=== PATIENT | female | born 1970 | race Caucasian/White ===

== ENCOUNTER 2018-12-10 17:24 | Inpatient (IN) | payer BC ==
[~2018-12-10] VITALS: Ht 167.6 cm; Wt 132.2 kg
[~2018-12-10 17:24] MED LIST: CEFUROXIME500 MG PO; DITROPAN XL5 MG PO; LISINOPRIL-HCT1 EACH PO; TYLENOL WITH C1 EACH PO
[2018-12-10 17:59] LABS: BILIRUBIN,URINE NEGATIVE (NEGATIVE); CLARITY,URINE CLOUDY (CLEAR); COLOR,URINE YELLOW (YELLOW); KETONES,URINE NEGATIVE (NEGATIVE); LEUKOCYTE ESTERASE ,URINE LARGE (NEGATIVE); NITRITE,URINE POSITIVE (NEGATIVE); PROTEIN,URINE DIPSTICK 2+ (NEGATIVE); URINE UROBILINOGEN 0.2 mg/dL (0.2 - 1)
[2018-12-10] MEDS ORDERED: SODIUM CHLORIDE 0.9% 1000ML 1,000 ML IV ONE (18:00)
[2018-12-10] MEDS ORDERED: ONDANSETRON HCL INJ 2MG/ML 2ML 2 MG/ML VIAL IV NR (18:00)
[2018-12-10 18:14] LABS: BACTERIA,URINE MANY /HPF; EPITHELIAL CELLS,URINE FEW /LPF; WBC,URINE (MAN) >50 /HPF (0-5)
[2018-12-10 18:32] LABS: BASOPHILS # (AUTO) 0.1 (0.0-0.1); BASOPHILS % 0.6 % (0.0-1.0); EOSINOPHILS % 0.1 % (0.0-6.0); HEMATOCRIT 48.8 % (34.2-44.1); HEMOGLOBIN 16.3 g/dL (12.0-16.0); LYMPHOCYTES # (AUTO) 1.4 (1.0-3.2); LYMPHOCYTES % 9.8 % (18.0-39.1); MEAN CORPUSCULAR HEMOGLOBIN 27.6 pg (28-32); MEAN CORPUSCULAR HGB CONC 33.4 g/dL (31-35); MEAN CORPUSCULAR VOLUME 82.6 fL (81-99); MONOCYTES # (AUTO) 0.7 (0.2-0.8); MONOCYTES % 5.2 % (4.4-11.3); PLATELET COUNT 325 x10e3/uL (140-360); RED BLOOD COUNT 5.91 x10e6/uL (3.6-5.1); RED CELL DISTRIBUTION WIDTH 13.6 % (11.7-14.4)
[2018-12-10 18:57] LABS: ALBUMIN 3.9 g/dL (3.5-5.0); ANION GAP 14.5 mmol/L (8-16); CREATININE, SERUM 1.19 mg/dL (0.57-1.11); POTASSIUM 3.5 mmol/L (3.5-5.1)
[2018-12-10] MEDS ORDERED: MEROPENEM 1GM 100 ML IV SCH (19:00)
[2018-12-10] MEDS ORDERED: KETOROLAC TROMETHAMINE 30 MG/ML VIAL IV NR (19:00)
[2018-12-10] MEDS: SODIUM CHLORIDE 0.9% 1000ML 1,000 ML IV SCH ×3 (19:15→23:53)
[2018-12-10] MEDS: MEROPENEM 1GM 100 ML IV SCH (19:49)
[2018-12-10] MEDS ORDERED: ACETAMINOPHEN 1000 MG/100 ML IV NR (20:00)
[2018-12-10] MEDS ORDERED: MORPHINE SULFATE INJ 4 MG/ML INJ 1ML IV PRN (20:00)
--- NOTE | 2018-12-10 20:04 | Diagnostic Imaging Report ---
Exam: Abdominal film Clinical History: Right renal stent placement and a single, fever since yesterday Comparison: KUB 12/01/2018 DISCUSSION: Frontal view of the abdomen shows a nonobstructive bowel gas pattern with single mildly dilated loop of small bowel in the left lower quadrant, with maximal measurement of 3.8 cm. . Previously visualized 5 mm radiopaque density projecting over the left renal shadow is not clearly seen in the current exam. Right double-J internal ureteral stent in place. No acute bony abnormalities. IMPRESSION: 1. Single mildly dilated loop of small bowel in the left lower quadrant, which may reflect focal ileus. Rest of the bowel shows no air-filled, dilated loops. 2. Previously visualized 5 mm radiopaque density over the left renal shadow, consistent with nonobstructing calculus is not clearly seen on the current exam. No other abnormal calcifications. 3. Right double-J internal ureteral stent in place. The staff physician below has personally reviewed this exam on the date of dictation. Signed by: Dr. River Bee M.D. on 12/10/2018 8:01 PM
[2018-12-10] MEDS ORDERED: KETOROLAC TROMETHAMINE 30 MG/ML VIAL IV STA (20:37)
[2018-12-10 21:00] VITALS: BP 110/78
--- NOTE | 2018-12-10 21:09 | NUR ---
patient brought in the [facility]. Patient offered, safety and fall precautions maintained
[2018-12-10] MEDS ORDERED: SODIUM CHLORIDE 0.9% 1000ML 1,000 ML ONE (21:31)
[2018-12-10] MEDS ORDERED: SODIUM CHLORIDE 0.9% IV ONE (22:15)
--- NOTE | 2018-12-10 22:32 | Diagnostic Imaging Report ---
EXAMINATION: CT of the abdomen and pelvis without contrast. TECHNIQUE: Spiral CT images of the abdomen and pelvis were performed from the lung bases to the lesser trochanters. No intravenous contrast was given per renal stone protocol. Coronal and sagittal reformatted images were obtained. COMPARISON: CT abdomen and pelvis without contrast 12/01/2018 CLINICAL HISTORY:Fever, evaluate for ureteral obstruction DISCUSSION: ABSENCE OF INTRAVENOUS CONTRAST DECREASES SENSITIVITY FOR DETECTION OF FOCAL LESIONS AND VASCULAR PATHOLOGY. ABDOMEN/PELVIS: LOWER THORAX: Stable 5 mm pulmonary nodule in the lateral right lower lobe (series 3, image 6). Stable 2 mm pulmonary nodule in the lateral left lower lobe (series 3, image 13) Stable subpleural linear density in the lateral right lower lobe consistent with focal atelectasis or scarring (series 3, image 8). HEPATOBILIARY: Diffuse hepatic steatosis. No focal lesions. No intra or extrahepatic biliary ductal dilation. GALLBLADDER: No radio-opaque stones or sludge. No wall thickening. SPLEEN: No splenomegaly. PANCREAS: No focal masses or ductal dilatation. ADRENALS: No adrenal nodules. KIDNEYS/URETERS: Stable 3 mm nonobstructing calculus in the left inferior pole (series 3, image 89). No other renal or ureteral calculi, hydronephrosis or obstruction. Right double-J internal ureteral stent in place, with pigtail in the right superior calyx and lower pigtail in the bladder. No significant encrustation. Mild right perinephric and periureteral stranding. No contour abnormalities. PELVIC ORGANS/BLADDER: Bladder is unremarkable. No calculi. Uterus is absent. No adnexal masses. PERITONEUM/RETROPERITONEUM: No free air or fluid. LYMPH NODES: No intra-abdominal,retroperitoneal, pelvic or inguinal lymphadenopathy. VESSELS: Unremarkable for noncontrast exam. GI TRACT: No bowel dilation or evidence of obstruction. No pericolonic inflammatory changes. Appendix is well identified and normal in caliber. BONES AND SOFT TISSUES: No aggressive lytic lesions. Marked degenerative disc changes at L5-S1 with marked intervertebral disc space narrowing and grade 1 anterolisthesis of L5 on S1. Soft tissues are grossly unremarkable. IMPRESSION: 1. No ureteral calculi, hydronephrosis or evidence of obstruction. 2. Stable 3 mm nonobstructing calculus in the left inferior pole. No other renal calculi. 3. Mild right perinephric and periureteral stranding. Although ascending infection is a consideration, unable to assess for pyelonephritis given the lack of intravenous contrast. Alternatively this may be secondary to recently placed double-J internal ureteral stent. 4. Diffuse hepatic stenosis. 5. Stable bilateral lower lobe nonspecific pulmonary nodules. If patient is low risk, no further follow-up is indicated per Fleischner Society 2017 guidelines. Signed by: Dr. River Bee M.D. on 12/10/2018 10:29 PM
[2018-12-10 23:35] VITALS: BP 108/79
[2018-12-11] VITALS (8 sets, daily range): BP systolic 100–103; BP diastolic 59–71
[2018-12-11] MEDS: ONDANSETRON HCL INJ 2MG/ML 2ML 2 MG/ML VIAL IV PRN ×2 (03:00→20:45)
--- NOTE | 2018-12-11 05:31 | NUR ---
0445: patient complained of stomach up set, zofran and tylenol for temp. Dr. Person aware
[2018-12-11] MEDS ORDERED: ACETAMINOPHEN 325 MG TAB PO PRN (06:15)
[2018-12-11] MEDS ORDERED: ACETAMINOPHEN/CODEINE 300MG - 30MG TAB PO PRN (06:15)
[2018-12-11] MEDS ORDERED: HYDRALAZINE HCL 20 MG/ML VIAL IV PRN (06:15)
[2018-12-11] MEDS: SODIUM CHLORIDE 0.9% 1000ML 1,000 ML IV SCH ×3 (06:31→20:08)
[2018-12-11 06:32] LABS: BASOPHILS # (AUTO) 0.1 (0.0-0.1); BASOPHILS % 0.4 % (0.0-1.0); EOSINOPHILS # (AUTO) 0.1 (0.0-0.4); EOSINOPHILS % 0.3 % (0.0-6.0); HEMATOCRIT 41.4 % (34.2-44.1); HEMOGLOBIN 13.6 g/dL (12.0-16.0); LYMPHOCYTES # (AUTO) 0.9 (1.0-3.2); LYMPHOCYTES % 5.7 % (18.0-39.1); MEAN CORPUSCULAR HEMOGLOBIN 27.3 pg (28-32); MEAN CORPUSCULAR HGB CONC 32.9 g/dL (31-35); MEAN CORPUSCULAR VOLUME 83.1 fL (81-99); MONOCYTES % 6.4 % (4.4-11.3); NEUTROPHILS # (AUTO) 14.1 (2.1-6.9); NEUTROPHILS % 86.8 % (38.7-80.0); PLATELET COUNT 234 x10e3/uL (140-360); RED BLOOD COUNT 4.98 x10e6/uL (3.6-5.1); RED CELL DISTRIBUTION WIDTH 13.8 % (11.7-14.4)
[2018-12-11] MEDS ORDERED: CHOLESTYRAMINE 4 GM PACKET PO PRN (06:45)
[2018-12-11] MEDS: FAMOTIDINE 20 MG TAB PO SCH ×3 (06:45→16:58)
[2018-12-11 06:50] LABS: ANION GAP 11.1 mmol/L (8-16); BLOOD UREA NITROGEN 12 mg/dL (7-26); BUN/CREATININE RATIO 14 (6-25); CARBON DIOXIDE 20 mmol/L (22-29); CHLORIDE 106 mmol/L (98-107); CREATININE, SERUM 0.84 mg/dL (0.57-1.11); EST GLOMERULAR FILTRATION RATE > 60 ML/MIN (60-); GLUCOSE 129 mg/dL (74-118); POTASSIUM 3.1 mmol/L (3.5-5.1); SODIUM 134 mmol/L (136-145)
[2018-12-11] MEDS ORDERED: MEROPENEM 1GM 100 ML IV SCH (07:00)
--- NOTE | 2018-12-11 07:30 | NUR ---
report taken from Sarah Ma RN, patient is complaing of temp and nausea/vomiting and abdominal pain
[2018-12-11] MEDS: MEROPENEM 1GM 100 ML IV SCH ×2 (07:57→20:15)
--- NOTE | 2018-12-11 09:30 | NUR ---
Spoke with Summer Benjamin NP and gave her the vital signs and the symptoms of sepsis, Gram neg rods in blood culture. Ordered iv potassium, abdominal US, and she will see her later today.
[2018-12-11] MEDS ORDERED: POTASSIUM CHLORIDE 20MEQ/100ML 200 ML IV ONE (09:45)
[2018-12-11] MEDS: ACETAMINOPHEN 325 MG TAB PO PRN ×2 (09:56→17:11)
[2018-12-11] MEDS: PROMETHAZINE 12.5MG/ NACL 0.9% 12.5 MG/50 ML BAG IV PRN (10:34)
--- NOTE | 2018-12-11 11:46 | NUR ---
Patient is sleeping after phenergan ordered by Summer Benjamin NP
[2018-12-11 12:03] LABS: BAND NEUTROPHILS % (MANUAL) 3 %; LYMPHOCYTES % (MANUAL) 6 % (19-48); MONOCYTES % (MANUAL) 6 % (3.4-9.0); NEUTROPHILS % (MANUAL) 85 % (40-74)
[2018-12-11 12:04] LABS: PLATELET ESTIMATE ADEQUATE; PLATELET MORPHOLOGY COMMENT NORMAL; RBC MORPHOLOGY COMMENT NORMAL
--- NOTE | 2018-12-11 17:35 | NUR ---
Patient had a temp of 100.4 which she rec'd PO Tylenol for at 1700. She has been awaiting Dr. Jorgensen today but Dr. Kuo has seen patient today. Patient is appropriate and asking the right questions. is at her bedside.
--- NOTE | 2018-12-11 21:58 | Diagnostic Imaging Report ---
EXAM: Complete Abdominal Ultrasound INDICATION: ^vomiting ^[id number] ^[id number] COMPARISON: CT abdomen and pelvis 12/10/2018 , gallbladder ultrasound 12/01/2018 TECHNIQUE: Transverse and longitudinal images of the upper abdomen were obtained. FINDINGS: Liver: Size: 19.2 cm in the right midclavicular line, enlarged Appearance: Increased echogenicity, smooth contour Mass: 1.1 cm anechoic lesion in the left hepatic lobe, which has no corresponding abnormality on recent CT Spleen: Size: 12.9 cm in length, borderline enlarged Echogenicity: Normal Mass: No focal masses Gallbladder: Stones/Sludge: None. Previously visualized echogenic focus in the gallbladder noted on ultrasound 12/01/2018 is not seen in the current exam. Wall: 0.2 cm Appearance: No wall thickening, pericholecystic fluid or hydrops. Sonographic Espinosa's Sign: Negative Bile Ducts: Intrahepatic Ducts: No dilatation Extrahepatic Ducts: Common bile duct measures 0.1 cm, no dilatation Pancreas: Visualized portions of the neck and proximal body are unremarkable. Kidneys: Length: Right 13.0 cm upper limit of normal. Left 13.3 cm upper limit of normal. Echogenicity: Normal Collecting System: No hydronephrosis Stone: None Cyst/Mass: 1.9 x 1.6 cm anechoic lesion in the left inferior pole Vessels: Aorta: Visualized portions are normal Inferior Vena Cava: Visualized portions are normal Main Portal Vein: 1.0 cm, normal size with hepatopetal flow. Free Fluid: No ascites or pleural effusion IMPRESSION: 1. Hepatomegaly with diffuse fatty infiltration. 2. 1.9 cm simple cyst in the left inferior pole. 3. A previously visualized echogenic focus in the gallbladder on ultrasound 12/01/2018 is not seen in the current exam. Signed by: Dr. River Bee M.D. on 12/11/2018 9:55 PM
[2018-12-12] VITALS (8 sets, daily range): BP systolic 103–131; BP diastolic 56–78
[2018-12-12] MEDS: ACETAMINOPHEN 325 MG TAB PO PRN ×3 (00:17→09:44)
[2018-12-12] MEDS: SODIUM CHLORIDE 0.9% 1000ML 1,000 ML IV SCH ×4 (02:25→23:18)
[2018-12-12 03:54] LABS: BASOPHILS # (AUTO) 0.1 (0.0-0.1); BASOPHILS % 0.4 % (0.0-1.0); EOSINOPHILS # (AUTO) 0.1 (0.0-0.4); EOSINOPHILS % 0.4 % (0.0-6.0); HEMATOCRIT 37.2 % (34.2-44.1); HEMOGLOBIN 11.9 g/dL (12.0-16.0); LYMPHOCYTES # (AUTO) 2.1 (1.0-3.2); LYMPHOCYTES % 15.2 % (18.0-39.1); MEAN CORPUSCULAR HEMOGLOBIN 27.4 pg (28-32); MEAN CORPUSCULAR VOLUME 85.5 fL (81-99); MONOCYTES # (AUTO) 1.2 (0.2-0.8); MONOCYTES % 8.8 % (4.4-11.3); NEUTROPHILS # (AUTO) 10.4 (2.1-6.9); NEUTROPHILS % 74.8 % (38.7-80.0); PLATELET COUNT 191 x10e3/uL (140-360); RED BLOOD COUNT 4.35 x10e6/uL (3.6-5.1); RED CELL DISTRIBUTION WIDTH 13.9 % (11.7-14.4)
[2018-12-12 04:16] LABS: ANION GAP 10.6 mmol/L (8-16); BLOOD UREA NITROGEN 7 mg/dL (7-26); BUN/CREATININE RATIO 9 (6-25); CALCIUM 8.1 mg/dL (8.4-10.2); CARBON DIOXIDE 23 mmol/L (22-29); CHLORIDE 106 mmol/L (98-107); CREATININE, SERUM 0.74 mg/dL (0.57-1.11); EST GLOMERULAR FILTRATION RATE > 60 ML/MIN (60-); GLUCOSE 107 mg/dL (74-118); POTASSIUM 3.6 mmol/L (3.5-5.1); SODIUM 136 mmol/L (136-145)
--- NOTE | 2018-12-12 07:15 | NUR ---
Patient endorsed to next shift for continuity of care.
[2018-12-12] MEDS: OYST-CAL-D 500MG TABLET PO SCH (09:43)
[2018-12-12] MEDS: FAMOTIDINE 20 MG TAB PO SCH (09:43)
[2018-12-12] MEDS: MEROPENEM 1GM 100 ML IV SCH ×2 (09:43→20:24)
[2018-12-12] MEDS: ONDANSETRON HCL INJ 2MG/ML 2ML 2 MG/ML VIAL IV PRN ×4 (09:43→21:52)
[2018-12-12] MEDS: TRAMADOL HCL 50 MG TAB PO PRN ×2 (09:44→16:50)
[2018-12-12] MEDS: FAMOTIDINE 20 MG/2 ML VIAL IV SCH (16:50)
[2018-12-12] MEDS: PROMETHAZINE 12.5MG/ NACL 0.9% 12.5 MG/50 ML BAG IV PRN (16:50)
[2018-12-12] MEDS: MELATONIN 5 MG TABLET PO PRN (20:34)
[2018-12-13] VITALS (7 sets, daily range): BP systolic 121–150; BP diastolic 65–89
[2018-12-13] MEDS: ONDANSETRON HCL INJ 2MG/ML 2ML 2 MG/ML VIAL IV PRN ×3 (03:07→17:32)
[2018-12-13 05:25] LABS: BASOPHILS % 0.4 % (0.0-1.0); EOSINOPHILS # (AUTO) 0.1 (0.0-0.4); EOSINOPHILS % 1.1 % (0.0-6.0); HEMATOCRIT 33.8 % (34.2-44.1); HEMOGLOBIN 11.2 g/dL (12.0-16.0); LYMPHOCYTES # (AUTO) 1.4 (1.0-3.2); LYMPHOCYTES % 15.6 % (18.0-39.1); MEAN CORPUSCULAR HEMOGLOBIN 27.7 pg (28-32); MEAN CORPUSCULAR HGB CONC 33.1 g/dL (31-35); MEAN CORPUSCULAR VOLUME 83.7 fL (81-99); MONOCYTES # (AUTO) 0.7 (0.2-0.8); MONOCYTES % 7.2 % (4.4-11.3); NEUTROPHILS # (AUTO) 6.8 (2.1-6.9); NEUTROPHILS % 75.3 % (38.7-80.0); PLATELET COUNT 190 x10e3/uL (140-360); RED BLOOD COUNT 4.04 x10e6/uL (3.6-5.1); RED CELL DISTRIBUTION WIDTH 13.7 % (11.7-14.4)
[2018-12-13 05:45] LABS: ANION GAP 11.5 mmol/L (8-16); BLOOD UREA NITROGEN 10 mg/dL (7-26); BUN/CREATININE RATIO 15 (6-25); CALCIUM 8.3 mg/dL (8.4-10.2); CARBON DIOXIDE 23 mmol/L (22-29); CHLORIDE 106 mmol/L (98-107); CREATININE, SERUM 0.65 mg/dL (0.57-1.11); EST GLOMERULAR FILTRATION RATE > 60 ML/MIN (60-); GLUCOSE 110 mg/dL (74-118); POTASSIUM 3.5 mmol/L (3.5-5.1); SODIUM 137 mmol/L (136-145)
[2018-12-13] MEDS: SODIUM CHLORIDE 0.9% 1000ML 1,000 ML IV SCH ×3 (06:29→18:25)
[2018-12-13] MEDS: MEROPENEM 1GM 100 ML IV SCH (07:36)
[2018-12-13] MEDS: OYST-CAL-D 500MG TABLET PO SCH (08:32)
[2018-12-13] MEDS: FAMOTIDINE 20 MG/2 ML VIAL IV SCH ×2 (08:32→17:32)
--- NOTE | 2018-12-13 15:39 | NUR ---
Spoke with Dr. Segura regarding outpatient IV abx. States he will see pt and try to set up thru his office. He stated pt would probably be able to discharge tomorrow afternoon.
[2018-12-13] MEDS ORDERED: MEROPENEM 1GM 100 ML IV SCH (16:00)
[2018-12-13] MEDS ORDERED: DIPHENOXYLATE/ATROPINE TAB PO PRN (18:00)
--- NOTE | 2018-12-13 18:57 | Diagnostic Imaging Report ---
Hepatobiliary Scan with Gallbladder Ejection Fraction Clinical information: Severe nausea and vomiting x 2 days Report: Following intravenous administration of 6.5 millicuries of Tc-99m mebrofenin, dynamic images of the abdomen in the anterior projection were obtained through 60 minutes. Sincalide (CCK analog) 2.65 micrograms was administered intravenously over 30 minutes with additional imaging for determination of gallbladder ejection fraction. Perfusion to the liver is normal. Extraction of tracer from the blood pool by the liver parenchyma is normal. Tracer is seen promptly within the biliary tract. The gallbladder begins to fill by 16 minutes post-injection of tracer and fills adequately. Tracer is seen in the small bowel during the sincalide infusion. The gallbladder ejection fraction with administration of sincalide is 99% (normal greater than 40%). Impression: 1. Filling of the gallbladder excludes the diagnosis of acute cystic duct obstruction/acute cholecystitis. 2. Normal gallbladder ejection fraction of 99% does not support the clinical diagnosis of chronic cholecystitis/gallbladder dyskinesia. Signed by: Dr. Melani Álvarez M.D. on 12/13/2018 6:54 PM
[2018-12-13 19:15] LABS: ALBUMIN 2.5 g/dL (3.5-5.0); BILIRUBIN,DIRECT 0.2 mg/dL (0.0-0.5)
--- NOTE | 2018-12-13 22:17 | Consultation ---
DATE OF CONSULTATION: REASON FOR CONSULTATION: Sepsis, pyelonephritis with ESBL bacteremia. HISTORY OF PRESENT ILLNESS: This patient is a very pleasant 48-year-old white female. She was recently diagnosed with renal stone. The patient does have underlying history of morbid obesity. She came to the emergency room back on December 01 with right-sided flank pain. She was diagnosed with renal stone. The patient underwent stent placement. She was sent home with an oral antibiotic. She followed Dr. Travis Jorgensen as an outpatient. She was not feeling well. She was given more antibiotic, but then suddenly she felt really horrible with fever and chills and she had to tell her to come to the emergency room. In the emergency room, she came here, she was started on intravenous antibiotic. She grew Klebsiella pneumonia, which was multidrug resistant ESBL. Infectious Disease was asked to see the patient. The patient is currently having a HIDA scan. When I saw her and had an interview with her. The patient has a history of obesity, history of hypertension, history of psoriasis. PAST SURGICAL HISTORY: Hysterectomy, pregnancies, and stent placement on the left. ALLERGIES: PENICILLIN. SOCIAL HISTORY: There is no smoking, drug abuse, or alcohol abuse. FAMILY HISTORY: Hypertension and diabetes. PAST MEDICAL HISTORY: Hypertension. There is no diabetes, but there is obesity and psoriasis. REVIEW OF SYSTEMS: HEENT: There is no headache, visual changes, or hearing changes. GI: There is nausea, but no vomiting. Her pain is better. PSYCHIATRIC: She is a little bit anxious about her condition, in tears. LABORATORY DATA: Reviewed. Her urine cultures on December 10 showed ESBL Klebsiella pneumonia sensitive only to meropenem and amikacin, piperacillin/tazobactam, it was the same bacteria in the urine. The patient did have a CAT scan of abdomen and pelvis on December 10, which showed no ureteral calculi, hydronephrosis or evidence of obstruction. There is stable 3 mm nonobstructive calculi in the left inferior pole. Mild right perinephric stranding. Her laboratory data reviewed and as mentioned above. Her white count when she first came was 14.3, now is 9.04, her hemoglobin of 11, her sodium 137, potassium 3.5, creatinine 0.85. PHYSICAL EXAMINATION: GENERAL: She is currently alert, oriented, does not seem to be in acute distress. VITAL SIGNS: Stable, currently afebrile. HEENT: Normocephalic, not icteric. NECK: Supple. CHEST: Clear. HEART: S1 and S2. No murmur. ABDOMEN: Soft and obese. No tenderness. No hepatosplenomegaly. EXTREMITIES: No edema. SKIN: No rash. IMPRESSION: Sepsis with extended-spectrum beta-lactamase Klebsiella pneumonia. Source is pyelonephritis. We would recommend 14 days of meropenem. We will need a PICC line and then we will do meropenem 1 g IV piggyback q.8 hours, weekly CBC, weekly Chem panel. Recheck urine cultures 1 week after finishing the treatment. Discussed with the patient. Discussed with the medical team. We will arrange outpatient IV antibiotic, please contact at [phone]. I answered all the questions for the patient. MD ALE Barriga/KADIE /[id number]
[2018-12-14 00:44] VITALS: BP 127/68
--- NOTE | 2018-12-14 00:49 | Diagnostic Imaging Report ---
EXAMINATION: CHEST XRAY LINE PLACEMENT INDICATION: ^CHECK PICC PLACEMENT ^[id number] ^0025 COMPARISON: None FINDINGS: AP view TUBES and LINES: Right PICC in place with tip projecting over mid SVC. LUNGS: Lungs are well inflated. There is no evidence of pneumonia or pulmonary edema. Mild central vascular congestion. PLEURA: No pleural effusion or pneumothorax. HEART AND MEDIASTINUM: The cardiomediastinal silhouette is borderline enlarged on this AP view. BONES AND SOFT TISSUES: No acute osseous lesion. Soft tissues are unremarkable. UPPER ABDOMEN: No free air under the diaphragm. IMPRESSION: Right PICC in place with tip projecting over mid SVC. No visible pneumothorax. Signed by: Dr. Stephane Samuels MD on 12/14/2018 12:46 AM
[2018-12-14] MEDS: MEROPENEM 1GM 100 ML IV SCH ×3 (01:00→17:10)
[2018-12-14] MEDS: SODIUM CHLORIDE 0.9% 1000ML 1,000 ML IV SCH ×2 (01:05→09:50)
[2018-12-14] MEDS: ONDANSETRON HCL INJ 2MG/ML 2ML 2 MG/ML VIAL IV PRN (01:05)
[2018-12-14] MEDS: MELATONIN 5 MG TABLET PO PRN (01:05)
[2018-12-14 04:40] VITALS: BP 150/78
[2018-12-14 05:02] LABS: BASOPHILS % 0.7 % (0.0-1.0); EOSINOPHILS # (AUTO) 0.2 (0.0-0.4); EOSINOPHILS % 2.6 % (0.0-6.0); HEMATOCRIT 34.2 % (34.2-44.1); LYMPHOCYTES # (AUTO) 1.5 (1.0-3.2); LYMPHOCYTES % 24.7 % (18.0-39.1); MEAN CORPUSCULAR HEMOGLOBIN 26.9 pg (28-32); MEAN CORPUSCULAR HGB CONC 32.2 g/dL (31-35); MEAN CORPUSCULAR VOLUME 83.6 fL (81-99); MONOCYTES # (AUTO) 0.5 (0.2-0.8); MONOCYTES % 8.8 % (4.4-11.3); NEUTROPHILS # (AUTO) 3.9 (2.1-6.9); NEUTROPHILS % 62.9 % (38.7-80.0); PLATELET COUNT 191 x10e3/uL (140-360); RED BLOOD COUNT 4.09 x10e6/uL (3.6-5.1); RED CELL DISTRIBUTION WIDTH 13.5 % (11.7-14.4)
[2018-12-14 05:29] LABS: ANION GAP 12.5 mmol/L (8-16); BLOOD UREA NITROGEN 8 mg/dL (7-26); BUN/CREATININE RATIO 13 (6-25); CALCIUM 8.1 mg/dL (8.4-10.2); CARBON DIOXIDE 25 mmol/L (22-29); CHLORIDE 106 mmol/L (98-107); CREATININE, SERUM 0.64 mg/dL (0.57-1.11); EST GLOMERULAR FILTRATION RATE > 60 ML/MIN (60-); GLUCOSE 106 mg/dL (74-118); MAGNESIUM 1.9 MG/DL (1.3-2.1); PHOSPHORUS 2.5 MG/DL (2.3-4.7); POTASSIUM 3.5 mmol/L (3.5-5.1); SODIUM 140 mmol/L (136-145)
--- NOTE | 2018-12-14 07:00 | NUR ---
RECEIVED AM REPORT FROM NATHAN AND MORNING ROUNDS DONE. PT IS ALERT SITTING UP IN BED, NO S/S OF DISTRESS. CALL LIGHT IS WITHIN REACH AND INSTRUCTED PT TO CALL FOR HELP. PT COMPLAINING IF HEADACHE AND REQUESTING TYLENOL
[2018-12-14] MEDS: ACETAMINOPHEN 325 MG TAB PO PRN (07:34)
[2018-12-14 08:15] VITALS: BP 141/85
[2018-12-14 08:25] VITALS: BP 141/89
[2018-12-14] MEDS: OYST-CAL-D 500MG TABLET PO SCH (08:45)
[2018-12-14] MEDS: FAMOTIDINE 20 MG/2 ML VIAL IV SCH ×2 (08:45→17:10)
[2018-12-14 11:59] VITALS: BP 143/89
--- NOTE | 2018-12-14 15:07 | NUR ---
Spoke to [place] at Dr. Segura's office. States still pending insurance authorization for IV abx.
--- NOTE | 2018-12-14 15:57 | Progress Note ---
DATE: SUBJECTIVE: I had a very long visit with Ms. Bernstein. She asked several questions. Her at the bedside. The patient has no complaints. She remains concerned and anxious. I have reviewed with her the culture result and laboratory data result. REVIEW OF SYSTEMS: Otherwise unremarkable. PHYSICAL EXAMINATION: GENERAL: She is currently alert, oriented, does not seem in acute distress. Morbidly obese. Her BMI is 47.0. HEENT: She is not icteric. NECK: Supple. CHEST: Few crackles at the bases. HEART: S1 and S2. No murmur. ABDOMEN: Soft. LABORATORY DATA: Her white count came down to normal at 6.12. Her sodium 140, potassium 3.5, and creatinine 0.64. IMPRESSION: Sepsis, on admission, bacteremia secondary to Klebsiella, which is ESBL. PLAN: Meropenem 1 g IV q.8 for 2 weeks total. We are waiting on insurance approval. Recheck CBC weekly. Check Chem panel weekly. I spent at least 45 minutes with the patient back and forth and talking with her and her . Answered all their questions and concerns. MD ALE Barriga/KADIE /[id number]
[2018-12-14 16:15] VITALS: BP 138/70
[2018-12-14] MEDS ORDERED: Calcium Carbonate PO (17:20)
[2018-12-14] MEDS ORDERED: DIPHENOXYLATE-1 EACH PO (17:20)
[2018-12-14] MEDS ORDERED: MELATONIN5 M2 PO (17:20)
[2018-12-14] MEDS ORDERED: CHOLESTYRAMINE L4 GM PO (17:20)
[2018-12-14] MEDS ORDERED: ACETAMINOPHEN325 M1 PO (17:20)
[2018-12-14] MEDS ORDERED: MERREM1 GM IV (17:21)
--- NOTE | 2018-12-15 17:10 | Discharge Summary ---
HISTORY: Ms. Bernstein is a 48-year-old female with right ureteral stent placement on 12/02/2018, who began having chills and "feeling bad" on the Wednesday following the procedure. She was given Ceftin after the procedure done on Wednesday. She went to an Urgent [facility] Center. They kept her overnight to give her IV antibiotics. She then subsequently had a fever of 101.5 at home, so she came to the emergency department. PAST MEDICAL HISTORY: Significant for hypertension, psoriasis, and right ureteral stent secondary to stone. PAST SURGICAL HISTORY: Hysterectomy. FAMILY HISTORY: Grandmother had diabetes. Father had cancer. SOCIAL HISTORY: Noncontributory. ALLERGIES: PENICILLIN AND LATEX. ADMISSION DIAGNOSES: 1. Urinary tract infection, failing outpatient treatment with Ceftin with pyelonephritis and severe sepsis. 2. Hypertension. 3. Morbid obesity. 4. Acute kidney injury. DISCHARGE DIAGNOSES: 1. Acute urinary tract infection with multidrug-resistant organism, Klebsiella pneumoniae with ESBL, pyelonephritis and severe sepsis, failed outpatient treatment with Ceftin. 2. Controlled hypertension. 3. Morbid obesity with BMI 46.9. 4. Nausea and vomiting. 5. Diarrhea. HOSPITAL COURSE: On 12/10, the KUB showed single mildly dilated loop of small bowel in the left lower quadrant, which could reflect focal ileus, right double-J internal ureteral stent in place. CT of the abdomen and pelvis the same day showed no ureteral calculi, hydronephrosis, or evidence of obstruction. Stable 3 mm nonobstructing calculus on the left inferior pole. No other renal calculi. Mild right perinephric and periureteral stranding. Diffuse hepatic stenosis. Stable bilateral lower lobe nonspecific pulmonary nodules. Laboratory data on December 10; WBC 14.33, hemoglobin 16.3, hematocrit 48.8, and platelets 325. Sodium 134, potassium 3.5, chloride 96, CO2 27, BUN 13, creatinine 1.19, GFR 48, glucose 118, and calcium 10. Urinalysis showed protein 2+, nitrite positive, rbc 11 to 20, wbc greater than 50, many bacteria. On the , the C. difficile toxin was negative. She had abdominal ultrasound, which showed hepatomegaly with diffuse fatty infiltration, 1.9 cm simple cyst in the left inferior pole. The patient was treated with Merrem of the antibiotics. She underwent a HIDA scan on 12/13/2018, which showed filling of the gallbladder, excluding the diagnosis of acute cystic duct obstruction/acute cholecystitis. Normal gallbladder ejection fraction of 99%, did not support the clinical diagnosis of chronic cholecystitis/gallbladder dyskinesia. On 12/14, today, the patient underwent chest x-ray to confirm placement of the right upper extremity PICC line. The right PICC was in place with the tip projecting over the mid superior vena cava. Today, the white blood cell count 6.12, hemoglobin 11, hematocrit 34.2, and platelets 191. Sodium 140, potassium 3.5, chloride 106, CO2 25, BUN 8, creatinine 0.64, GFR greater than 60, calcium 8.1, phosphorus 2.5, and magnesium 1.9. The urine culture and sensitivity that had been collected on December 10 was positive for multidrug-resistant organism Klebsiella pneumoniae, which was ESBL-producing. The patient is to receive Merrem 1 g IV every 8 hours for 14 days duration post discharge. The labs, BMP, and CBC are to be collected weekly, then 1 week after treatment with Merrem has ended, she is to have a urine culture and sensitivity. I have discussed the case with Dr. Rice and Dr. Segura. Insurance just approved for the Merrem on an outpatient basis. No further nausea, vomiting, abdominal pain, or diarrhea. We will send her home on scripts for Tylenol, calcium carbonate, p.r.n. cholestyramine, p.r.n. Lomotil, and p.r.n. melatonin for insomnia. No change in physical examination. Also, the patient will be on cardiac diet. Activity level as tolerated. Follow up with PCP, Dr. Carlson in 1 to 2 weeks. Follow up with Dr. Segura in his office tomorrow morning at 10 a.m. Dictated by Dung Rodarte, PACKAGING ASSOCIATE Amandeep Rice MD HWP/NORMAL /[id number]
== END 2018-12-14 18:38 | disposition home or self-care (01) | DRG 872 ==
LOC: ER 17:24 → ERHOLD 19:44 → MED/SURG2 23:15
PROVIDERS: ADMIT Internal Medicine; ATTEND Internal Medicine
PROC: 02HV33Z Insertion of Infusion Device into Superior Vena Cava, Percutaneous Approach (ICD-10-PCS; principal; 2018-12-14)
DX: A41.89 Other specified sepsis (principal); Z68.42 Body mass index [BMI] 45.0-49.9, adult; N17.9 Acute kidney failure, unspecified; N10 Acute pyelonephritis; I10 Essential (primary) hypertension; R65.20 Severe sepsis without septic shock; E66.01 Morbid (severe) obesity due to excess calories; B96.1 Klebsiella pneumoniae [K. pneumoniae] as the cause of diseases classified elsewhere; Z16.12 Extended spectrum beta lactamase (ESBL) resistance; R19.7 Diarrhea, unspecified; N20.0 Calculus of kidney; K76.0 Fatty (change of) liver, not elsewhere classified; N28.1 Cyst of kidney, acquired; G47.00 Insomnia, unspecified; Z96.0 Presence of urogenital implants
CPT/HCPCS: 36415; 36569; 71045; 74018; 74176; 76700; 78227; 80048; 80053; 80076; 81001; 82150; 83605; 83690; 83735; 83880; 84100; 85025; 87040; 87071; 87086; 87186; 87205; 87493; 99284; A9537; J1885; J2405; J2550; J3480; J7030

== ENCOUNTER 2021-11-19 22:14 | Emergency (ER) | payer BC ==
[~2021-11-19] VITALS: Ht 167.6 cm; Wt 132.9 kg
[~2021-11-19 22:14] MED LIST changes: +ACETAMINOPHEN325 M1 PO; +CHOLESTYRAMINE L4 GM PO; +Calcium Carbonate PO; +DIPHENOXYLATE-1 EACH PO; +MELATONIN5 M2 PO; +MERREM1 GM IV; +TYLENOL EXTRA500 MG PO
[2021-11-19] MEDS ORDERED: KETOROLAC TROMETHAMINE 30 MG/ML VIAL IV STA (22:20)
[2021-11-19 22:30] LABS: BASOPHILS # (AUTO) 0.1 (0.0-0.1); BASOPHILS % 0.4 % (0.0-1.0); EOSINOPHILS # (AUTO) 0.4 (0.0-0.4); EOSINOPHILS % 3.2 % (0.0-6.0); HEMATOCRIT 44.9 % (34.2-44.1); HEMOGLOBIN 14.5 g/dL (12.0-16.0); LYMPHOCYTES # (AUTO) 2.7 (1.0-3.2); LYMPHOCYTES % 23.1 % (18.0-39.1); MEAN CORPUSCULAR HEMOGLOBIN 28.2 pg (28-32); MEAN CORPUSCULAR HGB CONC 32.3 g/dL (31-35); MEAN CORPUSCULAR VOLUME 87.4 fL (81-99); MONOCYTES # (AUTO) 0.6 (0.2-0.8); MONOCYTES % 5.2 % (4.4-11.3); NEUTROPHILS # (AUTO) 7.9 (2.1-6.9); NEUTROPHILS % 67.8 % (38.7-80.0); PLATELET COUNT 283 x10e3/uL (140-360); RED BLOOD COUNT 5.14 x10e6/uL (3.6-5.1); RED CELL DISTRIBUTION WIDTH 13.6 % (11.7-14.4)
[2021-11-19 22:51] LABS: ALANINE AMINOTRANSFERASE 24 IU/L (0-55); ALBUMIN 3.4 g/dL (3.5-5.0); ALBUMIN/GLOBULIN RATIO 0.9 (0.8-2.0); ALKALINE PHOSPHATASE 115 IU/L (40-150); ANION GAP 14.8 mmol/L (8-16); BLOOD UREA NITROGEN 15 mg/dL (7-26); BUN/CREATININE RATIO 19 (6-25); CALCIUM 8.8 mg/dL (8.4-10.2); CARBON DIOXIDE 24 mmol/L (22-29); CHLORIDE 107 mmol/L (98-107); CREATINE KINASE 39 IU/L (29-168); CREATININE, SERUM 0.78 mg/dL (0.57-1.11); GLUCOSE 132 mg/dL (74-118); POTASSIUM 3.8 mmol/L (3.5-5.1); SODIUM 142 mmol/L (136-145)
[2021-11-19] MEDS ORDERED: ULTRAM 50MG50 MG PO (23:40)
== END 2021-11-20 00:06 | disposition home or self-care (01) ==
LOC: ER 22:20
DX: M79.662 Pain in left lower leg (principal); M71.22 Synovial cyst of popliteal space [Baker], left knee; I10 Essential (primary) hypertension; F41.9 Anxiety disorder, unspecified
CPT/HCPCS: 36415; 71045; 80053; 82550; 82553; 83880; 84484; 85025; 85379; 93005; 93971; 99284; J1885